=== PATIENT | male | born 1985 | race Two or more races ===

== ENCOUNTER 2023-09-02 22:06 | Emergency (ER) | payer OTHER ==
[~2023-09-02] VITALS: Ht 170.2 cm; Wt 80.3 kg
[2023-09-02 22:10] VITALS: BP 136/84; PULSE 72; RESP 14; TEMP 96; O2SAT 100
== END 2023-09-02 22:30 | disposition left against medical advice (07) ==
LOC: MED 22:06
DX: J34.89 Other specified disorders of nose and nasal sinuses (principal); Z53.21 Procedure and treatment not carried out due to patient leaving prior to being seen by health care provider